=== PATIENT | female | born 1985 | race African-American/Black ===

== ENCOUNTER 2020-08-18 10:34 | Day surgery (SDC) | payer OTHER ==
[2020-08-12 13:31] VITALS: BMI 26.2
[2020-08-18 12:45] VITALS: TEMP 97.9
[2020-08-18 13:11] VITALS: BP 116/74; PULSE 59
== END 2020-08-18 13:11 | disposition home or self-care (01) ==
LOC: FASU-ENDO 10:34
PROVIDERS: ATTEND Internal Medicine Gastroenterology
PROC: 0DB78ZX Excision of Stomach, Pylorus, Via Natural or Artificial Opening Endoscopic, Diagnostic (ICD-10-PCS; 2020-08-18)
PROC: 0DB48ZX Excision of Esophagogastric Junction, Via Natural or Artificial Opening Endoscopic, Diagnostic (ICD-10-PCS; 2020-08-18)
PROC: 0DB98ZX Excision of Duodenum, Via Natural or Artificial Opening Endoscopic, Diagnostic (ICD-10-PCS; principal; 2020-08-18 12:20)
DX: K29.70 Gastritis, unspecified, without bleeding (principal); K21.9 Gastro-esophageal reflux disease without esophagitis; B96.81 Helicobacter pylori [H. pylori] as the cause of diseases classified elsewhere
CPT/HCPCS: 84703

== ENCOUNTER 2021-12-28 10:35 | Day surgery (SDC) | payer OTHER ==
[2021-12-28 11:11] VITALS: BMI 25.5
[2021-12-28 12:23] VITALS: TEMP 98
[2021-12-28 12:52] VITALS: BP 120/81; PULSE 65
== END 2021-12-28 13:28 | disposition home or self-care (01) ==
LOC: FASU-ENDO 10:35
PROVIDERS: ATTEND Internal Medicine Gastroenterology
PROC: 0DB68ZX Excision of Stomach, Via Natural or Artificial Opening Endoscopic, Diagnostic (ICD-10-PCS; 2021-12-28)
PROC: 0DB48ZX Excision of Esophagogastric Junction, Via Natural or Artificial Opening Endoscopic, Diagnostic (ICD-10-PCS; 2021-12-28)
PROC: 0DB98ZX Excision of Duodenum, Via Natural or Artificial Opening Endoscopic, Diagnostic (ICD-10-PCS; principal; 2021-12-28 12:09)
DX: K29.50 Unspecified chronic gastritis without bleeding (principal); K20.0 Eosinophilic esophagitis; R12 Heartburn
CPT/HCPCS: 84703; 88305-TC; 88342-TC

== ENCOUNTER 2022-04-05 09:41 | Day surgery (SDC) | payer OTHER ==
[2022-04-05 11:00] VITALS: BMI 24.3
[2022-04-05 12:14] VITALS: RESP 18
[2022-04-05 12:17] VITALS: BP 112/74; PULSE 62; TEMP 97.8
== END 2022-04-05 12:17 | disposition home or self-care (01) ==
LOC: FASU-ENDO 09:41
PROVIDERS: ATTEND Internal Medicine Gastroenterology
PROC: 0DJD8ZZ Inspection of Lower Intestinal Tract, Via Natural or Artificial Opening Endoscopic (ICD-10-PCS; principal; 2022-04-05 11:14)
DX: Z12.11 Encounter for screening for malignant neoplasm of colon (principal); K64.1 Second degree hemorrhoids
CPT/HCPCS: 84703

== ENCOUNTER 2022-05-18 21:39 | Emergency (ER) | payer OTHER ==
[2022-05-18] MEDS ORDERED: IBUPROFEN 600 MG TABLET (FP) PO ONE ×2 (23:06→23:08)
[2022-05-18] MEDS ORDERED: guaiFENesin/D-METHORPHAN HB 10 ML UNIT-DOSE CUPS PO ONE (23:06)
[2022-05-18] MEDS ORDERED: guaiFENesin/D-METHORPHAN HB 10 ML UNIT-DOSE CUPS ONE (23:08)
[2022-05-18] MEDS ORDERED: diphenhydrAMINE HCL 25 MG CAPSULE (FP) PO ONE ×2 (23:24→23:25)
== END 2022-05-18 23:27 | disposition home or self-care (01) ==
LOC: FER 21:39
DX: J02.9 Acute pharyngitis, unspecified (principal)
CPT/HCPCS: 0241U-QW; 87651; 99283-25

== ENCOUNTER 2022-06-15 09:07 | Emergency (ER) | payer OTHER ==
[2022-06-15 09:22] VITALS: BP 116/83; PULSE 67; RESP 20; TEMP 98.5; BMI 24.0
== END 2022-06-15 10:01 | disposition home or self-care (01) ==
LOC: FER 09:07
DX: R09.89 Other specified symptoms and signs involving the circulatory and respiratory systems (principal)
CPT/HCPCS: 99282-25